=== PATIENT | male | born 1930 | race Caucasian/White ===

== ENCOUNTER 2017-03-14 13:30 | Observation (INO) | payer MEDICARE, BC ==
[2017-03-14] MEDS ORDERED: OXYMETAZOLINE HCL 0.05% 30 SPRAYS/BOT NS ONE (13:54)
[2017-03-14 14:46] LABS: ABSOLUTE NEUTROPHIL COUNT 7.5 K/mm3 (1.8-7.7); BASO % 0.4 % (0.2-1.0); EOS # 0.1 (0.0-0.5); EOS % 1.3 % (0.9-2.9); HEMOGLOBIN 7.6 gm/l (14.0-18.0); IMM NEUT% 0.4 % (0-1); LYMPH # 0.5 (1.0-4.8); LYMPH % 5.1 % (15-45); MEAN CELL VOLUME 96.9 fl (80.0-94.0); MEAN CORPUSCULAR HEMOGLOBIN 29.5 pg (27.0-31.0); MEAN CORPUSCULAR HGB CONC 30.4 g/dl (33.0-37.0); MEAN PLATELET VOLUME 9.4 fl (7.4-10.4); MONO % 10.6 % (4-12); NEUT % 82.2 % (43-75); PLATELET COUNT 286 K/mm3 (130-400); RED CELL DISTRIBUTION WIDTH 17.1 % (11.5-14.5)
[2017-03-14 14:47] LABS: ALBUMIN 3.6 gm/dL (3.5-5.7)
[2017-03-14 14:55] LABS: INR 4.96; PROTHROMBIN TIME 56.7 SECONDS (9.3-11.4)
[2017-03-14 15:37] LABS: ANISOCYTOSIS 2+; OVALOCYTES 2+; PLATELET ESTIMATE NORMAL (NORMAL); POIKILOCYTOSIS 2+; TEAR DROP CELLS 1+
[2017-03-14] MEDS ORDERED: PHYTONADIONE PO ONE (16:30)
[2017-03-14] MEDS ORDERED: BISACODYL 5 MG TABLET.EC PO PRN (16:35)
[2017-03-14] MEDS ORDERED: SODIUM CHLORIDE 0.9% 100 ML IV PRN (16:35)
[2017-03-14] MEDS ORDERED: BLISTEX LIPSTICK 1 EACH TP PRN (16:35)
[2017-03-14] MEDS ORDERED: ACETAMINOPHEN 325 MG TABLET PO PRN (16:35)
[2017-03-14] MEDS ORDERED: SODIUM CHLORIDE 0.9% 500 ML IV PRN (16:35)
[2017-03-14] MEDS ORDERED: BISACODYL 10 MG SUP PR PRN (16:35)
[2017-03-14] MEDS ORDERED: FUROSEMIDE 20 MG/2 ML VIAL IV ONE (16:35)
[2017-03-14] MEDS ORDERED: MAGNESIUM HYDROXIDE 30 ML UDCUP PO PRN (16:35)
[2017-03-14] MEDS ORDERED: MENTHOL/CETYLPYRD 1 EACH LOZENGE PO PRN (16:35)
[2017-03-14] MEDS ORDERED: SODIUM CHLORIDE 0.9% 250 ML IV ONE (17:01)
[2017-03-14] MEDS ORDERED: BLOOD Y PLUMSET W/CASSETTE ONE (17:01)
[2017-03-14 17:11] VITALS: BMI 24.4
[2017-03-14] MEDS ORDERED: TORSEMIDE 10 MG TABLET PO SCH (19:15)
[2017-03-14] MEDS: ALBUTEROL/IPRATROPIUM 2.5/0.5 MG 3 ML/EACH DOSE IH SCH (20:14)
--- NOTE | 2017-03-14 20:20 | HP ---
ADRIANA YOUNG [id number] DATE OF ADMISSION: March 14, 2017 CHIEF COMPLAINT: Epistaxis. HISTORY OF PRESENT ILLNESS: The patient is an 86-year-old male with end-stage chronic systolic heart failure who has been under Hospice for palliative care I believe since December and has had problems with epistaxis off and on for the past week, worse in the last several days and severe today with persistent bleeding since 8:00 a.m. He reports he has been more weak than usual for the last three to four days and has had some increased dyspnea during that time frame. Off and on for the last several weeks he also had some gross hematuria but has a history of hemorrhagic cystitis. He was treated with Bactrim therapy empirically for presumed urinary tract infection which has caused his INR to become elevated due to interactions with his Coumadin. In the emergency department, his epistaxis was controlled with Afrin and direct pressure. His INR was discovered to be elevated at 4.96. He had evidence of acute blood loss anemia with a hemoglobin of 7.6 compared to a prior hemoglobin of 11.3 in October,. With his increased symptoms and after consultation with his real estate marketing coordinator, it was recommended he receive several units of packed red blood cells in the hopes that this will make him feel better. He was referred to the hospitalist service for observation for that purpose. The patient has been under [facility] for palliative care since his recent hospitalization at [facility]. He was treated there for intractable heart failure. His ejection fraction at that time was 25%. It was felt they had limited options to offer him and it appears he went on palliative care at that time. I do not have an updated POLST form on file, and in discussing his code status, he struggles with some of the answers. He eventually decided on limited additional interventions if he is developing respiratory failure. If he has no pulse and is not breathing, he does not want to have cardiopulmonary resuscitation performed. He would consider a limited trial of a feeding tube. REVIEW OF SYSTEMS: Is positive for chronic fatigue and weakness, worse in the last week. He has had no recent upper respiratory symptoms such as ear pain, tinnitus or earache or sore throat. He has had chronic dyspnea and a chronic cough due to his heart failure which is unchanged. He denies any increased lower extremity edema, no change in his nocturnal dyspnea. He has had no nausea, vomiting, no abdominal pain, diarrhea or constipation. He does report some chronic abdominal distention for several months. He has had a history of constipation in the past but he feels like this has been controlled with MiraLax and had a normal bowel movement this morning. He denies any acute pain symptoms. He has had no headaches, fainting, blackouts or seizures. He denies any urinary complaints. PAST MEDICAL HISTORY: Is significant for: 1. Prior mitral and aortic valve replacements. 2. He has had a history of atrial fibrillation status post MAZE procedure and pacemaker placement, currently in sinus rhythm. 3. He has had a history of coronary artery disease with ischemic cardiomyopathy and multiple stents. 4. He has had chronic congestive heart failure. His last ejection fraction was 25% consistent with systolic heart failure. 5. 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 6. He has had a history of prostate cancer status post prostatectomy as well as radiation. 7. He has had nephrolithiasis in the past. 8. He has a history of ulcerative colitis. 9. He has a history of peripheral neuropathy complicating his chemotherapy. 10. He has had chronic obstructive pulmonary disease. 11. He has had a history of stage 2 B cell lymphoma in remission since 2006. 12. He has had a history of antiphospholipid syndrome with deep vein thrombosis as well as arterial clots in the past. 13. He has macular degeneration. 14. He has hyperlipidemia. 15. He has osteoarthritis. PAST SURGICAL HISTORY: Significant for: 1. An aortic valve replacement in 2006. 2. Mitral valve replacement in 2013. 3. MAZE procedure in 2013. 4. Pacemaker has been placed in 2013. 5. Cardiac catheterization in September,. 6. Right femoral artery bypass, date unknown. 7. Right inguinal hernia repair, date unknown. 8. Bilateral total hip replacements. 9. Right eye cataract surgery. 10. He had a drug eluting stent placed in 2011 with coronary angiography. 11. He had a C3/C4 laminectomy in 2000. 12. Prostate surgery in 2004. ALLERGIES: INCLUDE: 1. METFORMIN. 2. PROPOXYPHENE. 3. AMIODARONE. CURRENT MEDICATIONS: Consist of: 1. MiraLax 17 g daily. 2. Roxanol 5 mg every hours as needed for pain. He has been using this rarely. 3. Gabapentin 100 mg three times daily. 4. DuoNebs 3 mL nebulized four times daily. 5. Torsemide 10 mg every other day. 6. Mesalamine 1.2 g tablets four tablets daily. 7. Spironolactone 25 mg daily. 8. Isosorbide dinitrate 20 mg every eight hours. 9. Hydralazine 50 mg every eight hours. 10. Magnesium oxide 250 mg daily. 11. Warfarin 1.5 mg orally on Monday and Monday and 3 mg orally on Monday, Monday, Monday, , and Monday. 12. He also takes dronedarone 400 mg daily. FAMILY HISTORY: Significant for a father who had blood clots and of a pulmonary embolism at the age of 83. His mother had Alzheimer's disease. SOCIAL HISTORY: He is . He lives about five blocks from [facility]. He has hired 24-hour caregivers since his last hospitalization. He insists on remaining independent in his home. He is on home oxygen therapy at a rate of 4 liters by nasal cannula. He has a daughter who works for [employer] and several other children who are involved in his care. His children have hopes that he will eventually agree to move up to [place] to be closer in some type of assisted living facility but so far he has not agreed to do that. I was not able to locate a POLST form on file. We filled one out today indicating DO NOT INTUBATE status with limited additional interventions. No cardiopulmonary resuscitation in the event of and limited tube feeding to be determined by the patient. PHYSICAL EXAMINATION: VITAL SIGNS: Exam shows a BMI of 24.4, a weight of 75 kilograms. Temperature is 97.9, pulse 78, blood pressure 120/49, respirations 18, oxygen saturation 95% on 4 liters by nasal cannula. HEENT: Exam shows moist, pink oral mucosa. He has some clots and scabs in the anterior nasal vestibule. No active bleeding. NECK: Is supple without lymphadenopathy or thyromegaly. CHEST: Lungs sounds are slightly diminished in the base, otherwise clear. CARDIOVASCULAR: Exam reveals a regular rate and rhythm without a murmur. ABDOMEN: Is mildly distended but nontender with positive bowel sounds. No organomegaly is appreciated. GENITOURINARY: Exam is deferred. RECTAL: Exam is deferred. EXTREMITIES: Show trace edema in the right ankle which the patient reports is chronic and no edema in the left leg. Dorsalis pedis pulses are 1+ in both feet and equal bilaterally. LABORATORY STUDIES: Included a CBC with a white count of 9.2, hemoglobin of 7.6, platelet count of 286,000. INR is 4.96. Chemistry profile shows sodium 134, potassium 5.4, BUN 37, creatinine 1.5. Liver function tests are normal. ASSESSMENT: 1. Patient has epistaxis associated with excessive anticoagulation on Coumadin and acute blood loss anemia. 2. He has chronic respiratory failure with hypoxia. 3. He has increasing weakness and increasing dyspnea on exertion possibly due to symptomatic anemia. 4. He has chronic stage 3 kidney disease which he has a baseline creatinine around 1.3. 5. He has chronic systolic heart failure with an ejection fraction at 25% when last checked earlier this year. 6. He has chronic ulcerative colitis treated with mesalamine. 7. He has a history of a mitral and aortic valves replacement with a goal INR of 2.5. 8. He has chronic obstructive pulmonary disease. 9. He has a history of recurrent urinary tract infections. We have been unable to get a urine sample due to his chronic incontinence, and he is not interested in being catheterized. 10. He has a history of coronary artery disease with multiple stents, currently stable. 11. He has a history of prostate cancer currently in remission. 12. History of hemorrhagic cystitis currently stable. 13. History of atrial fibrillation status post pacemaker and MAZE procedure. PLAN: 1. Plan is for observation overnight. 2. Transfusion of two units of packed red blood cells with diuresis between units. 3. We will see if physical therapy and occupational therapy can evaluate and treat the patient. 4. The patient has discontinued his Hospice care at the time of admission. The next available enrollment period would be on March 24, 2017, I believe. He does have 24-hour caregivers arranged. Care management may be needed if he is unable to return to his prior level of functioning and be cared for at home. 5. Further treatment and recommendations will depend on his hospital course. cc: Magui Esteves M.D. Imtiaz Lopez M.D.
[2017-03-14] MEDS: HYDRALAZINE HCL 25 MG TABLET PO SCH (20:23)
[2017-03-14] MEDS: GABAPENTIN 100 MG CAPSULE PO SCH (20:24)
[2017-03-14] MEDS: DOCUSATE SODIUM 100 MG CAPSULE PO SCH (20:24)
[2017-03-14] MEDS: ISOSORBIDE DINITRATE 10 MG TABLET PO SCH (20:24)
[2017-03-14] MEDS ORDERED: FUROSEMIDE 20 MG/2 ML VIAL ONE (23:59)
[2017-03-15] MEDS: ISOSORBIDE DINITRATE 10 MG TABLET PO SCH ×3 (06:46→20:27)
[2017-03-15] MEDS: HYDRALAZINE HCL 25 MG TABLET PO SCH ×3 (06:46→20:27)
[2017-03-15] MEDS: ALBUTEROL/IPRATROPIUM 2.5/0.5 MG 3 ML/EACH DOSE IH SCH ×4 (08:24→20:11)
[2017-03-15] MEDS ORDERED: BUMETANIDE 1 MG TABLET PO SCH (09:00)
[2017-03-15] MEDS ORDERED: DRONEDARONE HYDROCHLORIDE 400 MG TABLET PO SCH ×2 (09:00)
[2017-03-15] MEDS ORDERED: MAGNESIUM OXIDE 250 MG PO SCH (09:00)
[2017-03-15] MEDS: POLYETHYLENE GLYCOL 3350 17 G POWD.SUSP PO SCH (09:05)
[2017-03-15] MEDS: GABAPENTIN 100 MG CAPSULE PO SCH ×3 (09:06→20:27)
[2017-03-15] MEDS: DOCUSATE SODIUM 100 MG CAPSULE PO SCH ×2 (09:06→20:27)
[2017-03-15] MEDS: SPIRONOLACTONE 25 MG TABLET PO SCH (09:07)
[2017-03-15 09:28] LABS: HEMATOCRIT 28.3 % (32.0-52.0); HEMOGLOBIN 8.7 gm/l (14.0-18.0); MEAN CELL VOLUME 92.5 fl (80.0-94.0); MEAN CORPUSCULAR HEMOGLOBIN 28.4 pg (27.0-31.0); MEAN CORPUSCULAR HGB CONC 30.7 g/dl (33.0-37.0); RED CELL DISTRIBUTION WIDTH 18.3 % (11.5-14.5)
[2017-03-15 09:42] LABS: INR 2.08; PROTHROMBIN TIME 22.7 SECONDS (9.3-11.4)
[2017-03-15 09:44] LABS: CALCIUM 8.6 mg/dL (8.6-10.3)
--- NOTE | 2017-03-15 12:53 | PDOC43 ---
- Subjective Chief Complaint: Epistaxis Patient reports just waking up, hasn't had lunch yet, now getting neb tx. He reports low activity tolerance, short of breath at about 10 feet, with desaturation to 82% while on 4L. - Objective Vital Signs Temperature 97.8 F 03/15/17 08:34 Pulse Rate 78 03/15/17 08:34 Respiratory Rate 20 03/15/17 08:34 Blood Pressure 121/47 03/15/17 08:34 O2 Saturation by Pulse Oximetry 99 03/15/17 08:34 Oxygen Delivery Method Nasal Cannula Oxygen Flow Rate 4 Vital Signs Last 12 Hours Temp Pulse Resp BP Pulse Ox 03/15/17 08:34 97.8 F 78 20 121/47 99 03/15/17 08:24 88 22 90 03/15/17 05:30 15 03/15/17 01:33 98.3 F 75 15 122/42 96 03/15/17 01:27 98.3 F 74 15 118/43 98 03/15/17 00:57 97.8 F 73 12 106/47 98 Intake and Output 03/13/17 03/14/17 03/15/17 23:59 23:59 23:59 Intake Total 572 713 Output Total 1247 Balance 572 -534 Intake & Output 03/14/17 03/15/17 03/15/17 23:59 07:59 15:59 Intake Total 572 713 Output Total 1247 Balance 572 -534 Weight 75 kg Intake: PO Intake 400 Blood Product 504 273 Leukoreduced Packed Cells 273 Unit [id number] Leukoreduced Packed Cells 504 Unit [id number] Saline for Blood 68 40 Transfusion Leukoreduced Packed Cells 40 Unit [id number] Leukoreduced Packed Cells 68 Unit [id number] Output: Diaper Void (1gm=1 ml) 1247 General: Other (awake, answers.) HEENT: Atraumatic Lungs: Clear to Auscultation Bilaterally (rare crackles noted laterally) Cardiovascular: Regular Rate and Rhythm (with mechanical heart valve sounds.) Abdomen: Soft, Normal Bowel Sounds, Mild Distention (pt reports distention since November.) Extremities: Other (patient reports neuropathy bilat), No Edema Skin: Normal Color (sl pale, c/w anemia) Neurological: Normal Speech Psych/Mental Status: Other Laboratory 03/15/17 09:15 03/15/17 09:15 03/15/17 09:15 RBC 3.06 L MCHC 30.7 L RDW 18.3 H PT 22.7 H BUN 38 H Estimated GFR 41 L Current Medications: Current meds reviewed in EMR. Active Medications Acetaminophen (Tylenol) 650 mg PO Q6H PRN PRN Reason: Pain or Temperature > 100.5 F Albuterol/Ipratropium (Duoneb) 3 ml IH QID [facility] Last Admin: 03/15/17 08:24 Dose: 3 ml Benzocaine/Menthol (Cepacol) 1 each PO PRN PRN PRN Reason: Sore Throat Bisacodyl (Dulcolax) 10 mg [place] DAILY PRN PRN Reason: Constipation Bisacodyl (Dulcolax) 5 mg PO DAILY PRN PRN Reason: Constipation Bumetanide (Bumex) 0.5 mg PO Q48H [facility] Last Admin: 03/15/17 09:07 Dose: 0.5 mg Docusate Sodium (Colace) 100 mg PO BID [facility] Last Admin: 03/15/17 09:06 Dose: 100 mg Dronedarone (Multaq) 400 mg PO DAILY [facility] Gabapentin (Neurontin) 100 mg PO TID [facility] Last Admin: 03/15/17 09:06 Dose: 100 mg Hydralazine HCl (Apresoline) 50 mg PO Q8H [facility] Last Admin: 03/15/17 06:46 Dose: Not Given Sodium Chloride (Sodium Chloride 0.9%) 500 mls @ 25 mls/hr IV .Q20H PRN PRN Reason: Blood Transfusion Sodium Chloride (Sodium Chloride 0.9%) 100 mls @ 25 mls/hr IV PRN PRN PRN Reason: Flush Isosorbide Dinitrate (Isordil) 20 mg PO Q8H [facility] Last Admin: 03/15/17 06:46 Dose: Not Given Magnesium Hydroxide (Milk Of Magnesia) 30 ml PO DAILY PRN PRN Reason: Constipation Miscellaneous (Magnesium Oxide [Magnesium Oxide]) 250 mg PO DAILY [facility] Miscellaneous (Mesalamine [Lialda 1.2 G Tablet.Dr]) 4 tab PO DAILY [facility] Petrolatum/Paraffin/Mineral Oil (Blistex) 1 each TP PRN PRN PRN Reason: Dry and/or chapped lips Polyethylene Glycol/Electrolytes (Miralax) 17 g PO DAILY [facility] Last Admin: 03/15/17 09:05 Dose: 17 g Sodium Chloride (Normal Saline 10ml Flush) 10 - 50 ml IV PRN PRN PRN Reason: IV Flush Last Admin: 03/15/17 01:39 Dose: 10 ml Sodium Chloride (Normal Saline 10ml Flush) 10 ml IV Q8HR [facility] Last Admin: 03/15/17 09:08 Dose: 10 ml Spironolactone (Aldactone) 25 mg PO DAILY [facility] Last Admin: 03/15/17 09:07 Dose: 25 mg - Problems: Assessment/Plan (1) Epistaxis Status: ResolvedAssessment/Plan: Associated with acute blood loss anemia, now s/p transfusion 2 units Contributing factors include warfarin, particularly with elevated INR (after Bactrim therapy) (2) Acute blood loss anemia Status: AcuteAssessment/Plan: Due to epistaxis while on warfarin, elevated INR. s/p transfusion 2 units PRBC Laboratory Tests 03/14/17 03/15/17 14:15 09:15 Hgb 7.6 L 8.7 L (3) Antiphospholipid syndrome Status: ChronicAssessment/Plan: May play a role in his anticoagulation/therapy (4) S/P aortic valve replacement Status: ChronicAssessment/Plan: Mechanical, on anticoagulation. (5) S/P mitral valve replacement Status: ChronicAssessment/Plan: on warfarin, resuming. (6) COPD (chronic obstructive pulmonary disease) Qualifiers: Chronic bronchitis type: unspecified Status: ChronicAssessment/Plan: on 4L O2 NC (7) CHF (congestive heart failure) Qualifiers: Congestive heart failure type: unspecified congestive heart failure type Congestive heart failure chronicity: chronic Qualifier Code: (I50.9) Heart failure, unspecified Status: ChronicAssessment/Plan: Had been on hospice, but had self discontinued. VTE Prophylaxis: On warfarin Disposition: Some concern about placement. Pt has arranged for 24 hr home health care. Anticipate home health, for checking INR, Hb. Anticipate return to hospice, first week of March, for CHF Pt and family have had chronic disagreement about placement home vs nursing facility, but pt currently insisting on return to home.
[2017-03-15] MEDS: MESALAMINE PO SCH (14:33)
[2017-03-15] MEDS: DRONEDARONE HYDROCHLORIDE 400 MG TABLET PO SCH (14:33)
[2017-03-15] MEDS ORDERED: WARFARIN SODIUM 2 MG, WARFARIN SODIUM 1 MG PO SCH ×2 (17:30)
[2017-03-15] MEDS ORDERED: WARFARIN SODIUM 2 MG TABLET ONE (17:54)
[2017-03-15] MEDS ORDERED: WARFARIN SODIUM 1 MG TABLET ONE (17:55)
--- NOTE | 2017-03-15 21:34 | DS ---
ADRIANA YOUNG [id number] DATE OF ADMISSION: 03/14/2017 DATE OF DISCHARGE: Anticipated to be 03/15/2017. DISCHARGE DIAGNOSES: 1. Epistaxis, now resolved. 2. Overanticoagulation, attributed to use of Coumadin and recent Bactrim therapy. 3. Acute blood loss anemia, now status post transfusion two units of packed red blood cells. 4. Chronic systolic heart failure, with an ejection fraction of 25%, and recently on hospice for palliative therapy. 5. Severe COPD, with chronic respiratory failure and hypoxia, on supplemental oxygen at four liters. 6. History of chronic ulcerative colitis, on mesalamine. 7. Previous history of mitral and aortic valve replacements, with goal INR of 2.5. 8. History of recurrent urinary tract infections. 9. History of coronary artery disease, with previous stents. 10. History of prostate cancer, currently in remission. 11. History of lymphoma. 12. History of hemorrhagic cystitis. 13. History of atrial fibrillation, status post pacemaker and MAZE procedure. REASON FOR ADMISSION: The patient is an 86-year-old male with end-stage congestive systolic heart failure who had been on hospice for palliative care since December. He has had intermittent epistaxis for the last week, but worse in the previous couple of days, and severe with persistent bleeding since 8:00 A.M. on 03/14/2017. He has been more weak than usual the last couple of days and has had increasing dyspnea. He has also had some hematuria, but had a prior history of hemorrhagic cystitis. He was treated with Bactrim therapy empirically for presumed urinary tract infection, which caused his INR to become elevated. In the emergency department this epistaxis was controlled with Afrin and indirect pressure. His INR was elevated at 4.96. His hemoglobin was 7.6 compared to the prior of 11.3 in October, with increased symptoms, and after consultation with cardiology it was recommended that he receive several units of packed red cells in the hope that it would make him feel better. He was referred to the Hospitalist Service for this. The patient had been under [facility] for palliative care after being hospitalized at [facility] for intractable heart failure. The patient's admission labs showed a white blood cell count of 9.2, hemoglobin 7.6 and platelets of 286. His INR was 4.96. His chemistry profile; sodium 134, potassium 5.4, BUN of 37, creatinine 1.5 and glucose 120. LFTs are normal. Magnesium 2.5, albumin 3.6 and globulin 3.7. He had no particular imaging studies. The patient received two units of paced red blood cells without difficulty and his hemoglobin improved from 7.6 to 8.7. He had a follow-up INR after receiving vitamin K which was 2.08. He had physical therapy review with him and he was noted to have poor activity tolerance, but was felt to be fairly close to baseline with dyspnea at about ten feet, and desaturations to the 80's, requiring rest and oxygen for recovery. By 03/15/2017, he was approximately at his baseline status and he was anticipated to be discharged. The patient and his family have had conflict as to what would be preferred, but the patient has gone to extensive measures to stay at home and has live-in caregivers 24 hours. DISCHARGE MEDICATIONS: He is anticipated to be discharged on: 1. DuoNeb four times a day. 2. MULTAQ 400 mg daily. 3. Gabapentin 100 mg by mouth three times a day. 4. Hydralazine 50 mg by mouth every eight hours. 5. Isosorbide dinitrate 20 mg by mouth every eight hours. 6. Magnesium oxide 250 mg by mouth daily. 7. Mesalamine four tablets by mouth daily. 8. Roxanol 5 mg every one hour as needed. 9. MiraLAX 17 grams by mouth daily. 10. Spironolactone 25 mg daily. 11. Demadex Torsemide 10 mg by mouth every 48 hours. 12. Warfarin 1.5 mg by mouth on Monday and Monday, and 3 mg by mouth on Monday, Monday, Monday, and Monday. DISCHARGE FOLLOW-UP: 1. Home health arrangements are being established, hoping to recheck his INR later this week. 2. Follow-up anticipated with Dr. Andre on 03/21/2017 at 2:45 P.M. CONDITION ON DISCHARGE: Improved, but still facing severe congestive heart failure symptoms, along with severe COPD, and patient has had some suspiciousness while here, expressing a refusal to have blood drawn earlier this morning. It is anticipated that the patient will return to [facility] when the re-enrollment period is available on 03/24/2017. cc: Dr. Magui Esteves
[2017-03-16] MEDS: ISOSORBIDE DINITRATE 10 MG TABLET PO SCH ×2 (05:12→12:33)
[2017-03-16] MEDS: HYDRALAZINE HCL 25 MG TABLET PO SCH ×2 (05:12→12:32)
[2017-03-16 06:16] LABS: INR 1.44; PROTHROMBIN TIME 15.4 SECONDS (9.3-11.4)
[2017-03-16] MEDS: ALBUTEROL/IPRATROPIUM 2.5/0.5 MG 3 ML/EACH DOSE IH SCH ×3 (08:11→16:19)
[2017-03-16] MEDS: POLYETHYLENE GLYCOL 3350 17 G POWD.SUSP PO SCH (08:45)
[2017-03-16] MEDS: DOCUSATE SODIUM 100 MG CAPSULE PO SCH (08:45)
[2017-03-16] MEDS: MESALAMINE PO SCH (08:45)
[2017-03-16] MEDS: SPIRONOLACTONE 25 MG TABLET PO SCH (08:45)
[2017-03-16] MEDS: DRONEDARONE HYDROCHLORIDE 400 MG TABLET PO SCH (08:45)
[2017-03-16] MEDS: GABAPENTIN 100 MG CAPSULE PO SCH ×2 (08:45→14:41)
[2017-03-16] MEDS ORDERED: WARFARIN PER PHARMACY 1 EACH DOSE PO SCH (09:45)
[2017-03-16] MEDS ORDERED: WARFARIN SODIUM 5 MG TABLET PO ONE (10:00)
[2017-03-16] MEDS ORDERED: ENOXAPARIN SODIUM 120 MG/0.8 ML SYRINGE SUB-Q SCH (10:00)
[2017-03-16 10:49] LABS: HEMATOCRIT 26.9 % (32.0-52.0); HEMOGLOBIN 8.3 gm/l (14.0-18.0)
[2017-03-16 11:04] LABS: INR 1.46; PROTHROMBIN TIME 15.6 SECONDS (9.3-11.4)
[2017-03-16 11:07] LABS: CALCIUM 8.5 mg/dL (8.6-10.3)
--- NOTE | 2017-03-16 11:43 | PDOC43 ---
- Subjective Chief Complaint: Epistaxis Patient appears to be at his debilitated baseline. States that he is [facility]. - Objective Vital Signs Temperature 98.1 F 03/16/17 07:38 Pulse Rate 80 03/16/17 08:12 Respiratory Rate 18 03/16/17 08:12 Blood Pressure 104/46 03/16/17 07:38 O2 Saturation by Pulse Oximetry 95 03/16/17 08:12 Oxygen Delivery Method Nasal Cannula Oxygen Flow Rate 4 Intake and Output 03/15/17 03/16/17 03/17/17 06:59 06:59 06:59 Intake Total 1285 2345 Output Total 1247 1825 Balance 38 520 General: Alert, Oriented x3, Cooperative, No Acute Distress HEENT: Mucous membr. moist/pink Lungs: Clear to Auscultation Bilaterally Cardiovascular: Regular Rate and Rhythm (mechanical sounds) Abdomen: Soft, Normal Bowel Sounds, No Tenderness, No Masses Extremities: Pulses Diminished but Palpable, No Edema Skin: Normal Color Neurological: Normal Speech Psych/Mental Status: Normal Mood Laboratory 03/16/17 10:35 03/16/17 10:35 03/16/17 03/16/17 10:35 05:30 PT 15.6 H 15.4 H BUN 36 H Estimated GFR 48 L Calcium 8.5 L Current Medications: Current meds reviewed in EMR. - Problems: Assessment/Plan (1) Acute blood loss anemia Status: AcuteAssessment/Plan: Due to epistaxis while on warfarin, elevated INR. s/p transfusion 2 units PRBC Laboratory Tests 03/14/17 03/15/17 14:15 09:15 Hgb 7.6 L 8.7 L (2) Hypoxia Status: ChronicAssessment/Plan: Chronic hypoxemic respiratory failure due to CHF and COPD, stable on his usual 4L/min O2 (3) Antiphospholipid syndrome Status: ChronicAssessment/Plan: May play a role in his anticoagulation/therapy (4) CHF (congestive heart failure) Qualifiers: Congestive heart failure type: combined Congestive heart failure chronicity: chronic Qualifier Code: (I50.42) Chronic combined systolic ( congestive) and diastolic (congestive) heart failure Status: Chronic Assessment/Plan: With chronic respiratory failure on hospice. Hospitalization for epistaxis and anemia should not cause cancelation of hospice. VTE Prophylaxis: On warfarin Disposition: Anticipate discharge to home today. Pt has arranged for 24 hr home health care. Anticipate home health, for checking INR, Hb. Anticipate return to hospice, first week of March, for CHF Pt and family have had chronic disagreement about placement home vs nursing facility, but pt currently insisting on return to home.
[2017-03-16 15:35] VITALS: BP 104/47
[2017-03-17] MEDS ORDERED: WARFARIN SODIUM 1 MG TABLET PO SCH (16:00)
== END 2017-03-16 19:39 | disposition home or self-care (01) ==
LOC: ED 13:30 → MS 16:07
PROVIDERS: ADMIT Family Medicine; ATTEND Family Medicine
PROC: 30233N1 Transfusion of Nonautologous Red Blood Cells into Peripheral Vein, Percutaneous Approach (ICD-10-PCS; principal; 2017-03-14)
DX: R04.0 Epistaxis (principal); D68.32 Hemorrhagic disorder due to extrinsic circulating anticoagulants; D62 Acute posthemorrhagic anemia; I50.22 Chronic systolic (congestive) heart failure; J44.9 Chronic obstructive pulmonary disease, unspecified; J96.11 Chronic respiratory failure with hypoxia; Z99.81 Dependence on supplemental oxygen; I48.91 Unspecified atrial fibrillation; Z79.01 Long term (current) use of anticoagulants; Z95.0 Presence of cardiac pacemaker
CPT/HCPCS: 85027; 85025; 80048 ×2; 80053; 85014; 85018; 83735; 85610 ×4; 36415 ×2; 86920; 86922; 86921; 86901; 86850 ×3; 94640 ×7; 97110 ×2; 97530 ×2; 97163 ×2; 99285 ×2; 36430; A9270 ×27; J1940; J7050; J1650; P9016 ×2; G8978; G8979